=== PATIENT | male | born 1960 | race Two or more races ===

== ENCOUNTER 2018-10-05 15:50 | Emergency (ER) | payer BC ==
[~2018-10-05] VITALS: Ht 167.6 cm; Wt 92.5 kg
[2018-10-05 16:00] VITALS: Ht 167.6 cm; Wt 92.5 kg
--- NOTE | 2018-10-05 16:45 | ERD ---
ER Documentation Chief Complaint Chief Complaint C/O LEFT KNEE PAIN. FELL FROM LADDER YESTERDAY. KNEE SWOLLEN HPI 58-year-old male, previously healthy, and to the emergency department, comp laining of acute left knee pain after falling from a ladder yesterday landing on his knees. No head trauma, no other pain. The pain is dull, worsened by flexion, the patient took ibuprofen yesterday with mild improvement of the symptoms. ROS All systems reviewed and are negative except as per history of present illness. Medications Home Meds Active Scripts Hydrocodone/Acetaminophen ([place] 5-325 Tablet) 1 Each Tablet, 1 TAB PO Q6H PRN for PAIN, #12 TAB Prov:CHAVO HEATON MD 10/05/18 Ibuprofen* (Motrin*) 600 Mg Tab, 600 MG PO Q8, #30 TAB Prov:CHAVO HEATON MD 10/05/18 PMhx/Soc Hx Miscellaneous Medical Probl: Yes (hernia, hemorrhoids) Hx Alcohol Use: Yes Hx Substance Use: No Hx Tobacco Use: Yes Smoking Status: Current every day smoker FmHx Family History: No diabetes, No coronary disease Physical Exam Vitals Vital Signs Date Temp Pulse Resp B/P (MAP) Pulse Ox O2 O2 Flow FiO2 Time Delivery Rate 10/05/18 98.6 100 20 156/90 100 Room Air 19:38 (112) 10/05/18 96.8 72 16 139/63 97 16:00 (88) Physical Exam Const: No acute distress Head: Atraumatic Eyes: Normal Conjunctiva ENT: Normal External Ears, Nose and Mouth. Neck: Full range of motion. No meningismus. Resp: Clear to auscultation bilaterally Cardio: Regular rate and rhythm, no murmurs Abd: Soft, non tender, non distended. Normal bowel sounds Skin: No petechiae or rashes Back: No midline or flank tenderness Ext: Left knee: With moderate edema, no erythema, mild effusion, decreased range of motion due to pain. No gross deformity. Distal neurovascular exam intact. Neur: Awake and alert Psych: Normal Mood and Affect Results 24 hrs Current Medications Medications Dose Sig/Karthikeyan Start Time Status Last (Trade) Ordered Route PRN Stop Time Admin Dose Reason Admin Ibuprofen 600 mg ONCE ONCE 10/05/18 DC 10/05/18 (Motrin) PO 17:30 10/05/18 17:28 17:31 Radiology Main Line: [phone] DIAGNOSTIC IMAGING REPORT Patient: GABY DEAN : 1960 Age: 58 Sex: M MR #: [id number] DOS: 10/05/18 1642 Ordering MD: CHAVO HEATON MD Location: [facility] Room/Bed: PROCEDURE: XR Knee. CLINICAL INDICATION: Left knee pain TECHNIQUE: 3 images of the left knee are available for review. COMPARISON: None available FINDINGS: There is a moderate sized knee joint effusion. There is questionable cortical irregularity at the posterior aspect of the tibial plateau, not definitive though given the infusion history of trauma CT or MRI is recommended. The joint spaces are preserved. IMPRESSION: 1. Moderate sized knee joint effusion and questionable cortical irregularity along the posterior margin of the tibial plateau. Given history of recent trauma, MRI or CT is recommended to exclude an acute fracture. RPTAT: UU .Ulices Beal MD, MD Date Time Procedures/MDM Acute left knee pain: no red flags. Differential diagnosis include but not limited to: Knee contusion, meniscus injury, tendon/ligament injury, arthritis; low suspicion for fracture, dislocation, septic arthritis. Neurovascular exam grossly intact. no clinical findings suggestive of acute infectious process, no acute deformity, no edema, no rashes. Physical examination and clinical presentation consistent most likely with acute knee contusion. During the ED course the patient received treatment with ibuprofen p.o. presenting overall improvement of the symptoms. Results and clinical impression discussed with the patient who agrees with management. The patient is stable to be treated outpatient and will be discharged home with recommendations for ice, rest and partial immobilization. NSAIDs 3 times daily for 5 days and close monitoring. Splint evaluation: Type: Knee immobilizer Location: Left knee Position: good alignment in anatomical position Neurovascular intact The patient was told that elevating the injured part will help reduce pain and swelling. Ice packs can decrease pain and promote healing when applied in the first two days after an injury. The pack should be dry on the outside. Apply it for half an hour three to four times a day. The patient was instructed to follow up with the primary care provider in the next 48h. If symptoms persist, worsen or new symptoms develop, then patient should return to the ED immediately. Instructions explained and given to patient with acknowledgment and demonstrated understanding. Disclaimer: Inadvertent spelling and grammatical errors are likely due to EHR/dictation software use and do not reflect on the overall quality of patient care. Also, please note that the electronic time recorded on this note does not necessarily reflect the actual time of the patient encounter. Departure Diagnosis: Primary Impression: Contusion of left knee Condition: Stable Patient Instructions: Contusion, Lower Extremity Additional Instructions: Thank you very much for allowing us to participate in your care. Your health and safety is our top priority at [facility]. Call your primary care doctor TOMORROW for an appointment during the next 2-4 days and bring all the information and medications prescribed. Have prescriptions filled and follow precisely the directions on the label. If the symptoms get worse and your provider is unavailable, return to the Emergency Department immediately. CHAVO HEATON MD Oct 05, 2018 16:45
[2018-10-05] MEDS ORDERED: IBUPROFEN 600 MG TAB PO ONE (17:30)
[2018-10-05] MEDS ORDERED: HYDR-4011 PO (19:24)
[2018-10-05] MEDS ORDERED: IBUP-1542 PO (19:24)
[2018-10-05 19:38] VITALS: BP 156/90; PULSE 100; RESP 20
== END 2018-10-05 19:39 | disposition home or self-care (01) ==
LOC: FTE 15:50
DX: S82.202A Unspecified fracture of shaft of left tibia, initial encounter for closed fracture (principal); S80.02XA Contusion of left knee, initial encounter; F17.210 Nicotine dependence, cigarettes, uncomplicated; W11.XXXA Fall on and from ladder, initial encounter; Y92.9 Unspecified place or not applicable
CPT/HCPCS: 29505; 73562; Z7502; Z7610

== ENCOUNTER 2018-10-29 09:00 | Day surgery (SDC) | payer BC ==
[~2018-10-29] VITALS: Ht 172.7 cm; Wt 91.2 kg
[~2018-10-29 09:00] MED LIST: HYDR-4011 PO; IBUP-1542 PO
[2018-10-29] MEDS ORDERED: ATORVASTATIN (10:25)
[2018-10-29 10:26] VITALS: Ht 172.7 cm; Wt 91.2 kg
[2018-10-29 10:56] VITALS: BP 139/77; PULSE 85; RESP 19
[2018-10-29] MEDS ORDERED: PROPOFOL 20 ML ONE ×2 (11:19→12:35)
[2018-10-29] MEDS ORDERED: FENTAnyl 50 MCG/ML VIAL ONE (11:19)
--- NOTE | 2018-10-29 11:21 | PREAC ---
Date/Time of Note Date/Time of Note DATE: 10/29/18 TIME: 11:20 Anesthesia Eval and Record Evaluation Time Pre-Procedure Interview DATE: 10/29/18 TIME: 11:20 Age 58 Sex male NPO: 8 hrs Preoperative diagnosis screening Planned procedure colonoscopy Past Medical History Past Medical History: Includes Cardio: Dyslipidemia Surgery & Anesthesia Issues No known issue Meds Anticoagulation: No Beta Cale within 24 hr: No Reason Beta Cale not given: Pt. not on B-Cale Reported Medications [Atorvastatin] No Conflict Check 10/29/18 Discontinued Scripts Hydrocodone/Acetaminophen ([place] 5-325 Tablet) 1 Each Tablet, 1 TAB PO Q6H PRN for PAIN, #12 TAB Prov:CHAVO HEATON MD 10/05/18 Ibuprofen* (Motrin*) 600 Mg Tab, 600 MG PO Q8, #30 TAB Prov:CHAVO HEATON MD 10/05/18 Meds reviewed: Yes Allergies Coded Allergies: No Known Allergy (Unverified , 10/29/18) Allergies Reviewed: Yes Labs/Studies Labs Reviewed: Reviewed by anesthesiologist test: N/A Studies: ECG (n/a), CXR (n/a) Pre-procedure Exam Last vitals Vital Signs Date Temp Pulse Resp B/P (MAP) Pulse Ox O2 O2 Flow FiO2 Time Delivery Rate 10/29/18 98.0 85 19 139/77 99 Room Air 10:56 (97) Airway: Adequate mouth opening Mallampati: Mallampati I Teeth: Normal Lung: Normal Heart: Normal ASA Physical Status ASA physical status: 2 Emergency: None Planned Anesthetic General/MAC: MAC Planned Pain Management Parenteral pain med Pre-operative Attestations Prior to commencing anesthesia and surgery, the patient was re-evaluated, there was verification of: *The patient's identity *The results of appropriate recent lab work and preoperative vital signs *The above evaluation not changing prior to induction *Anesthetic plan, risk benefits, alternative and complications discussed with patient/family; questions answered; patient/family understands, accepts and wishes to proceed. ODESSA GAYLE MD Oct 29, 2018 11:21
[2018-10-29] MEDS ORDERED: ONDANSETRON 4 MG INJ IV PRN (11:30)
[2018-10-29 12:22] VITALS: BP 133/77; PULSE 72; RESP 12
--- NOTE | 2018-10-29 18:17 | PAC ---
Date/Time of Note Date/Time of Note DATE: 10/29/18 TIME: 18:17 Post-Anesthesia Notes Post-Anesthesia Note Last documented vital signs Vital Signs Date Temp Pulse Resp B/P (MAP) Pulse Ox O2 O2 Flow FiO2 Time Delivery Rate 10/29/18 98 72 12 133/77 97 Room Air 12:22 (95) 10/29/18 98.0 10:56 Activity: WNL Respiratory function: WNL Cardiovascular function: WNL Mental status: Baseline Pain reasonably controlled: Yes Hydration appropriate: Yes Nausea/Vomiting absent: No ODESSA GAYLE MD Oct 29, 2018 18:17
== END 2018-10-29 14:24 | disposition home or self-care (01) ==
LOC: GIL 09:00
PROVIDERS: ATTEND Internal Medicine Gastroenterology
DX: Z12.11 Encounter for screening for malignant neoplasm of colon (principal); K64.8 Other hemorrhoids; D12.0 Benign neoplasm of cecum; D12.2 Benign neoplasm of ascending colon; E78.5 Hyperlipidemia, unspecified
CPT/HCPCS: 45380; 88305; J3010; Z7610